=== PATIENT | male | born 1950 | race Caucasian/White ===

== ENCOUNTER 2017-09-21 06:23 | Day surgery (SDC) | payer MEDICARE ==
[~2017-09-21 06:23] MED LIST: COQ-10100 M1 PO; LEVEMIR FL100 UNIT/M SC; LEVOTHYROXIN50 MC1 PO; LIPITOR10 M1 PO; LOSARTAN POT25 MG PO; NOVOLOG FL100 UNIT/M
[2017-09-21 10:22] VITALS: BP 106/62
== END 2017-09-21 08:25 | disposition home or self-care (01) ==
LOC: ENDO 06:23
PROVIDERS: ATTEND Surgery
PROC: 0DJD8ZZ Inspection of Lower Intestinal Tract, Via Natural or Artificial Opening Endoscopic (ICD-10-PCS; principal; 2017-09-21)
DX: Z12.11 Encounter for screening for malignant neoplasm of colon (principal); K57.30 Diverticulosis of large intestine without perforation or abscess without bleeding; K64.8 Other hemorrhoids; E11.9 Type 2 diabetes mellitus without complications; E03.9 Hypothyroidism, unspecified; I10 Essential (primary) hypertension; E78.5 Hyperlipidemia, unspecified

== ENCOUNTER 2021-09-01 23:23 | Inpatient (IN) | payer MEDICARE ==
[~2021-09-01] VITALS: Ht 180.3 cm; Wt 82.0 kg
[2021-09-02] VITALS (56 sets, daily range): BP systolic 66–137; BP diastolic 36–85
--- NOTE | 2021-09-02 00:15 | NUR ---
AT BS. DR ATKINSON ALSO AT BS. PT AROUSABLE BUT NOT ORIENTED.
[2021-09-02 00:31] LABS: HEMATOCRIT 36.9 % (39.0-50.0); HEMOGLOBIN 11.5 g/dl (14.0-18.0); IMMATURE GRANULOCYTES 0.8 % (0.0-5.0); MEAN CELL VOLUME 98.4 fL CALC (80.0-100.0); MEAN CORPUSCULAR HGB 30.7 pG CALC (26.0-32.0); MEAN CORPUSCULAR HGB CONC 31.2 g/dL CAL (32.0-36.0); NEUT# 17.61 thou/uL (1.82-7.42); RED BLOOD COUNT 3.75 mill/uL (4.70-6.10); RED CELL DISTRI WIDTH 12.1 % (11.5-15.5)
[2021-09-02 00:38] LABS: ACT PARTIAL THROMBO TIME 31.3 SECONDS (20.0-32.5); ALBUMIN 3.8 g/dL (3.2-5.0); ALKALINE PHOSPHATASE 86 u/l (38-126); AMYLASE 95 u/l (30-110); INTERNATIONAL NORMALIZED RATIO 1.1 RATIO (0.7-1.3); LIPASE 380 u/l (23-300); PROTHROMBIN TIME 11.2 SECONDS (9.0-12.5); SGOT/AST 26 u/l (19-48); TOTAL PROTEIN 6.3 g/dL (6.3-8.2)
[2021-09-02 00:49] LABS: BUN 55 mg/dL (8-23); BUN/CREATININE RATIO 18 (12-20 (CALC)); GFR 21 ML/MIN (>=60 (CALC)); GFR FOR AFR.AMER. 25 ML/MIN (>=60 (CALC)); SODIUM 122 mmol/l (137-146)
[2021-09-02 00:50] LABS: ANION GAP 37 (6-22 (CALC)); BILIRUBIN, TOTAL 0.7 mg/dL (0.0-1.4); CARBON DIOXIDE < 5 mmol/l (22-30); CHLORIDE 87 mmol/l (95-108); POTASSIUM 6.8 mmol/l (3.5-5.1)
[2021-09-02 02:08] LABS: ALBUMIN 3.6 g/dL (3.2-5.0); BILIRUBIN, TOTAL 0.7 mg/dL (0.0-1.4); CREATININE 2.8 mg/dL (0.7-1.3)
[2021-09-02 02:21] LABS: TOTAL PROTEIN 5.8 g/dL (6.3-8.2)
--- NOTE | 2021-09-02 02:30 | NUR ---
TO GO HOME. PT WILL EITHER BE TRANSFERRED TO ICU OR ANOTHER HOSPITAL. UNDERSTAND
[2021-09-02 03:12] LABS: URINE BILIRUBIN - DIPSTICK NEGATIVE (NEGATIVE); URINE BLOOD DIPSTICK MODERATE (NEGATIVE); URINE COLOR YELLOW; URINE GLUCOSE - DIPSTICK >=1000 mg/dL (NEGATIVE); URINE KETONE 15 mg/dL (NEGATIVE); URINE PH 5.5 (4.5-8.0); URINE PROTEIN - DIPSTICK NEGATIVE (NEG-TRACE); URINE SPECIFIC GRAVITY 1.025; URINE UROBILINOGEN - DIPSTICK 0.2 E.U./dL (0.2)
[2021-09-02 03:18] LABS: URINE LEUK ESTERASE NEGATIVE (NEGATIVE); URINE NITRITE - DIPSTICK NEGATIVE (Negative)
[2021-09-02 03:19] LABS: URINE EPITHELIAL CELLS FEW EPI/hpf (0-FEW)
[2021-09-02 03:20] LABS: URINE BACTERIA MODERATE hpf; URINE FINE GRAN CAST FEW lpf; URINE HYALINE CAST FEW lpf (NONE-RARE)
[2021-09-02 03:21] LABS: ALBUMIN 3.3 g/dL (3.2-5.0); BILIRUBIN, TOTAL 0.7 mg/dL (0.0-1.4); CREATININE 2.8 mg/dL (0.7-1.3); MAGNESIUM 2.3 mg/dL (1.6-2.3); TOTAL PROTEIN 5.6 g/dL (6.3-8.2)
--- NOTE | 2021-09-02 03:30 | NUR ---
PT REMAINS CONFUSED. WILL BE TRANSFERRED TO ICU.
--- NOTE | 2021-09-02 04:11 | NUR ---
71 yr old white male admitted icu7 per stretcher from er. transferred to bed. bed weight obtained. monitoring and evaluation advisor shows sinus rhythm. rij tlc in place. insulin gtt began per protocol. fluid bolus cont. manuel cath in place. urine clear yellow. history obtained per er record. oriented to room. fall & air/contact precautions cont.
--- NOTE | 2021-09-02 04:30 | NUR ---
PT TRANSFERRED TO ICU.
--- NOTE | 2021-09-02 06:30 | NUR ---
dr alonso updated on pts condition. orders rec'd. orders faxed to [email or web address].
--- NOTE | 2021-09-02 07:32 | NUR ---
INITIAL BLOOD PRESSURE SEEN IN THE 60s SYSTOLIC. LEVOPHED WAS STARTED AT THIS TIME AT 8 MCG/MIN, BLOOD PRESSURE NOW SEEN AT 98/52. INSULIN DRIP CONTINUES AT 5 U/H, LATEST ACCUCHECK WAS HI.
[2021-09-02 07:40] LABS: CREATININE 2.6 mg/dL (0.7-1.3)
[2021-09-02 07:56] LABS: POTASSIUM 4.5 mmol/l (3.5-5.1)
--- NOTE | 2021-09-02 11:33 | NUR ---
PT REMAINS AT REST IN THE BED, BP NOW 108/51. LEVOPHED AT 6 MCG/MIN. INSULIN DRIP CONTINUES AT 5 U/H, LATEST BLOOD SUGAR WAS 426. HAS CALLED AND WAS UPDATED. DR LEONARD HAS SEEN PT, WILL CONSULT DR JAUREGUI.
[2021-09-02 11:46] LABS: CREATININE 2.3 mg/dL (0.7-1.3); POTASSIUM 3.8 mmol/l (3.5-5.1)
--- NOTE | 2021-09-02 12:51 | NUR ---
PT'S JARAD WAS ABLE TO DETERMINE THAT PT FILLED HIS INSULIN PUMP WITH LONG LASTING INSULIN INSTEAD OF SHORT ACTING. DR LEONARD MADE AWARE. PT HIMSELF REMAINS AT REST IN THE BED, NO DISTRESS. HE FEELS POORLY, DOES HAVE SORE THROAT FROM ALL THE VOMITING RECENTLY.
[2021-09-02 16:04] LABS: POTASSIUM 3.6 mmol/l (3.5-5.1)
--- NOTE | 2021-09-02 16:23 | NUR ---
INSULIN DRIP DOWN TO 3 UNITS HOURLY, LEVOPHED AT 4 MKG/MIN. BLOOD SUGARS IN THE 200s AND BLOOD PRESSURE 104/50.
--- NOTE | 2021-09-02 18:37 | NUR ---
INSULIN DRIP OFF NOW, LEVOPHED CONTINUES AT 4 MKG/MIN WITH BLOOD PRESSURE 112/57. PT APPEARS DROWSY, NO ACUTE DISTRESS.
--- NOTE | 2021-09-02 19:00 | NUR ---
REPORT RECEIVED FROM Nanette MASSEY RN. CARE OF PT ASSUMED AT THIS TIME.
--- NOTE | 2021-09-02 19:24 | NUR ---
CHEM 7 COLLECTED FROM [facility] TLC.
--- NOTE | 2021-09-02 19:48 | NUR ---
CALL RECEIVED FROM DR. LEONARD. UPDATES ON PT'S CURRENT STATUS PROVIDED. PLAN OF CARE DISCUSSED. ORDERS TO CHANGE POINT OF CARE GLUCOSE TO AC/HS WITH HUMALOG SLIDING SCALE COVERAGE AND START ON ADA DIET RECEIVED.
[2021-09-02 19:54] LABS: CREATININE 1.8 mg/dL (0.7-1.3); POTASSIUM 3.7 mmol/l (3.5-5.1)
--- NOTE | 2021-09-02 20:45 | NUR ---
POINT OF CARE GLUCOSE 120mG/dl.
--- NOTE | 2021-09-02 21:00 | NUR ---
HALF TURKEY SANDWICH, PEACH FRUIT CUP AND DIET SODA. PT SET UP TO EAT. PT ENCOURAGED TO EAT.
[2021-09-02 23:20] LABS: CREATININE 1.6 mg/dL (0.7-1.3); POTASSIUM 3.8 mmol/l (3.5-5.1)
[2021-09-03] VITALS (22 sets, daily range): BP systolic 91–136; BP diastolic 50–75
--- NOTE | 2021-09-03 05:15 | NUR ---
AM LABS COLLECTED VIA [employer] TLC.
[2021-09-03 06:14] LABS: ALBUMIN 2.7 g/dL (3.2-5.0); BUN 33 mg/dL (8-23); CARBON DIOXIDE 21 mmol/l (22-30); CHLORIDE 107 mmol/l (95-108); CREATININE 1.4 mg/dL (0.7-1.3); GFR 50 ML/MIN (>=60 (CALC)); GFR FOR AFR.AMER. 60 ML/MIN (>=60 (CALC)); MAGNESIUM 1.9 mg/dL (1.6-2.3); POTASSIUM 3.7 mmol/l (3.5-5.1); SODIUM 134 mmol/l (137-146)
--- NOTE | 2021-09-03 06:45 | NUR ---
REPORT RECEIVED FROM RAFITA IBRAHIM. CARE ASSUMED.
--- NOTE | 2021-09-03 07:07 | NUR ---
CALLED AND STATED THAT BLOOD SUGAR ON PHONE SUKI STATES 40. EXPLAINED THAT AM SUGAR AT 0630 WAS 128 BUT WOULD GO IN AND CHECK AND WOULD LET HER KNOW SHE STATES THAT "I NEED TO GO IN NOW" EXPLAINED THAT DUE TO HIS COVID STATUS I WOULD GOWN UP AND GO IN. SHE STATES "YOU ONLY NEED TO BE 20 FEET AWAY" I TOLD THE I WAS GOING INTO THE PATIENTS ROOM AND ENDED CALL.
--- NOTE | 2021-09-03 07:15 | NUR ---
GLUCOSE OBTAINED VIA GLUCOMETER SHOWS 118. EMESIS NOTED ON BED. PATIENT GIVEN COMPLETED BED BATH LINENS CHANGED. CENTRAL LINE DRESSING COMPLETED AT THIS TIME USING STERILE TECHNIQUE. EXPLAINED TO PATEINT THAT HIS HAD CALLED HE STATES "I HTINK MY MACHINE IS READING WRONG" AM LABS COMPARED TO BOTH AM GLUCOMETER RESULTS ALL RELATIVELY THE SAME. AM ASSESSMENT COMPLETED. LEVOPHED TITRATED TO 0 AT THIS TIME. PT TOLERATING WELL. CALL LIGHT IN REACH. WILL CONTINUE TO MONITOER
--- NOTE | 2021-09-03 07:42 | NUR ---
Patient is screened for rehab intervention and no needs are identified at this time
--- NOTE | 2021-09-03 07:45 | NUR ---
PHONED TO NOTIFY OF GLUCOMETER FINDINGS AND ALL AM COMPARISONS RELATIVELY THE SAME AND THAT PATIENT HAS NO SIGNS OF HYPOGLYCEMIA. NO ANSWER. VOCIEMAIL LEFT.
--- NOTE | 2021-09-03 08:30 | NUR ---
DR LEONARD AT BEDSIDE AT THIS TIME TO DISCUSS PLAN OF CARE.
--- NOTE | 2021-09-03 10:00 | NUR ---
PATIENT RESTING IN BED WATCHING TV. RESP ARE EVEN AND UNLABORED. NO DISTRESS NOTED. CALL LIGHT IN REACH. WILL CONTINUE TO MONITOR.
--- NOTE | 2021-09-03 12:00 | NUR ---
PATIENT SITTING UP IN BED EATING LUNCH. NO DISTRESS NOTED. CALL [facility] WILL CONTINUE TO MONITOR.
--- NOTE | 2021-09-03 14:00 | NUR ---
PATIENT RESTING IN BED WATCHING TV RESP ARE EVEN AND UNALBORED NO DISTRESS NOTED. CALL LIGHT N REACH WILL CONTINUE TO MONITOR
--- NOTE | 2021-09-03 16:00 | NUR ---
PATIENT RESTING IN BED WATCHINTV RESP ARE EVEN AND UNLABORED. NO DISTRESS NOTED. [facility] LIGHT IN REACH. [facility] ONTINUE TO MONITOR
--- NOTE | 2021-09-03 18:00 | NUR ---
PATIENT SITTING UP EATING PM MEAL. CALL LIGHT IN REACH
--- NOTE | 2021-09-03 19:00 | NUR ---
REPORT RECEIVED FROM Johanna SCHULTZ RN. CARE OF PT ASSUMED AT THIS TIME.
--- NOTE | 2021-09-03 20:00 | NUR ---
POINT OF CARE GLUCOSE 185mg/dl.
[2021-09-04] VITALS (8 sets, daily range): BP systolic 107–145; BP diastolic 49–73
--- NOTE | 2021-09-04 05:15 | NUR ---
AM LABS COLLECTED VIA [employer] T[facility].
[2021-09-04 06:27] LABS: ALBUMIN 2.4 g/dL (3.2-5.0); BUN 19 mg/dL (8-23); CHLORIDE 105 mmol/l (95-108); CREATININE 0.9 mg/dL (0.7-1.3); GFR > 60 ML/MIN (>=60 (CALC)); GFR FOR AFR.AMER. > 60 ML/MIN (>=60 (CALC)); POTASSIUM 3.7 mmol/l (3.5-5.1); SODIUM 135 mmol/l (137-146)
[2021-09-04 06:30] LABS: CARBON DIOXIDE 26 mmol/l (22-30)
--- NOTE | 2021-09-04 06:45 | NUR ---
REPORT RECEIVED FROM RAFITA IBRAHIM. CARE ASSUMED.
--- NOTE | 2021-09-04 07:20 | NUR ---
PATIENT RESTING IN BED AWAKE AND WATCHING TV. PATIENT IS ALERT AND ORIENTED X3. SHIFT ASSESSMENT COMPLETED AT TIS TIME. IV PATENT X1. PATIENT STATES THAT HE WANT TO GO HOME. WILLY ORANTES'Kiley AT THIS TIME. URINAL PROVIDED AND ENCOURAGE TO USE. PATIENT VERBA.IZED UNDERSTANDING. CALL LIGHT IN REACH. WILL CONTINUE TO MONITOR.
--- NOTE | 2021-09-04 08:02 | NUR ---
PATIENT SET UP FOR AM MEAL AT THIS TIME.
--- NOTE | 2021-09-04 08:30 | NUR ---
DR LEONARD AT BEDSIDE AT THIS TIME.
--- NOTE | 2021-09-04 10:05 | NUR ---
PATIENT RESTING IN BED WATCHING TV. RESP ARE EVEN AND UNLABORED. NO DISTRESS NOTED. CALL LIGHT IN REACH. WILL CONTINUE TO MONITOR.
--- NOTE | 2021-09-04 11:45 | NUR ---
DISCHARGE INSTRUSTIONS REVIEWED WITH PATIENT. PATIENT VERBALIZED UNDERSTANINDG. TLC REMOVED FROM [facility]IJ. PATIENT TOLERATED WELL. OCCLUSIVE DRESSING APPLIED. PATIENT AWAITING TO DROP OFF CLOTHES FOR DC.
--- NOTE | 2021-09-04 11:55 | NUR ---
S- Pt reported going home today. 0- Pt resting in littlejohn position, eyes closed, open to verbal stimuli. He was able to roll side to side indep without rails, moved slowly but able to complete. SBA for supine to and from sit without bed rail. Pt perfomed AROM ex to BLE in sittingg x 10 reps. Gait in room 2 x 40' in room with CGA, pt using light tough on objects at time. Gait was slow and posture flexed. BP 128/61 to 145/73, HR 59 to 56, 02sats 97-96%. Pt left resting in bed with call nascimento/tray and phone in reach. Time spent with pt 35 min. Pt was encouraged to be OOB and walk at home. Pt to do home ex program. A- [id number] home with home health. P- Will follow per POC until D/C.
--- NOTE | 2021-09-04 12:24 | NUR ---
Discharge instructions given. Patient verbalizes understanding of same. Discharged in stable condition via Wheelchair to Home with staff. All belongings sent with pt.
== END 2021-09-04 12:24 | disposition home or self-care (01) | DRG 917 ==
LOC: ED 23:23 → ED-I 09-02 02:43 → ED 09-02 03:05 → ED-I 09-02 03:05 → ICU 09-02 03:06 → ED 09-02 03:48 → ICU 09-04 12:24
PROVIDERS: Internal Medicine Nephrology; ADMIT Internal Medicine; ATTEND Internal Medicine
PROC: 02HV33Z Insertion of Infusion Device into Superior Vena Cava, Percutaneous Approach (ICD-10-PCS; principal; 2021-09-02)
PROC: 0T9B70Z Drainage of Bladder with Drainage Device, Via Natural or Artificial Opening (ICD-10-PCS; 2021-09-02)
DX: T38.3X1A Poisoning by insulin and oral hypoglycemic [antidiabetic] drugs, accidental (unintentional), initial encounter (principal); E10.10 Type 1 diabetes mellitus with ketoacidosis without coma; U07.1 COVID-19; N17.0 Acute kidney failure with tubular necrosis; E87.5 Hyperkalemia; I10 Essential (primary) hypertension; E86.9 Volume depletion, unspecified; I95.9 Hypotension, unspecified; D64.9 Anemia, unspecified; E83.39 Other disorders of phosphorus metabolism; Z79.4 Long term (current) use of insulin; Z96.41 Presence of insulin pump (external) (internal)
CPT/HCPCS: J0692

== ENCOUNTER 2021-10-11 20:35 | Emergency (ER) | payer MEDICARE ==
[~2021-10-11] VITALS: Ht 180.3 cm; Wt 84.0 kg
[2021-10-11] VITALS (7 sets, daily range): BP systolic 136–151; BP diastolic 68–79
[2021-10-11 21:29] LABS: URINE BILIRUBIN - DIPSTICK NEGATIVE (NEGATIVE); URINE BLOOD DIPSTICK TRACE-LYSED (NEGATIVE); URINE COLOR YELLOW; URINE GLUCOSE - DIPSTICK >=1000 mg/dL (NEGATIVE); URINE KETONE 40 mg/dL (NEGATIVE); URINE LEUK ESTERASE NEGATIVE (NEGATIVE); URINE NITRITE - DIPSTICK NEGATIVE (Negative); URINE PROTEIN - DIPSTICK NEGATIVE (NEG-TRACE); URINE UROBILINOGEN - DIPSTICK 0.2 E.U./dL (0.2)
[2021-10-11 21:45] LABS: HEMATOCRIT 34.6 % (39.0-50.0); HEMOGLOBIN 11.2 g/dl (14.0-18.0); MEAN CELL VOLUME 95.3 fL CALC (80.0-100.0); MEAN CORPUSCULAR HGB 30.9 pG CALC (26.0-32.0); MEAN CORPUSCULAR HGB CONC 32.4 g/dL CAL (32.0-36.0); NEUT# 2.08 thou/uL (1.82-7.42); RED BLOOD COUNT 3.63 mill/uL (4.70-6.10); RED CELL DISTRI WIDTH 13.5 % (11.5-15.5)
[2021-10-11 21:58] LABS: ALKALINE PHOSPHATASE 112 u/l (38-126); BILIRUBIN, TOTAL 0.6 mg/dL (0.0-1.4); BUN 23 mg/dL (8-23); BUN/CREATININE RATIO 21 (12-20 (CALC)); CARBON DIOXIDE 22 mmol/l (22-30); CHLORIDE 97 mmol/l (95-108); CREATININE 1.1 mg/dL (0.7-1.3); GFR > 60 ML/MIN (>=60 (CALC)); GFR FOR AFR.AMER. > 60 ML/MIN (>=60 (CALC)); SGOT/AST 19 u/l (19-48); SODIUM 130 mmol/l (137-146); TOTAL PROTEIN 6.6 g/dL (6.3-8.2)
[2021-10-11 22:06] LABS: ALBUMIN 3.8 g/dL (3.2-5.0); ANION GAP 16 (6-22 (CALC)); POTASSIUM 4.8 mmol/l (3.5-5.1)
[2021-10-11 22:12] LABS: MYOGLOBIN 47 ng/mL (0 - 121)
[2021-10-12 00:01] VITALS: BP 140/74
== END 2021-10-12 00:15 | disposition home or self-care (01) ==
LOC: ED 20:35
PROVIDERS: Family Medicine
DX: E11.65 Type 2 diabetes mellitus with hyperglycemia (principal); I10 Essential (primary) hypertension; E03.9 Hypothyroidism, unspecified; I48.91 Unspecified atrial fibrillation; I25.2 Old myocardial infarction; T38.1X6A Underdosing of thyroid hormones and substitutes, initial encounter; Z91.128 Patient's intentional underdosing of medication regimen for other reason; Z96.41 Presence of insulin pump (external) (internal); Z79.4 Long term (current) use of insulin; F17.200 Nicotine dependence, unspecified, uncomplicated